=== PATIENT | female | born 1970 | race Caucasian/White ===

== ENCOUNTER 2020-03-26 13:14 | Emergency (ER) | payer OTHER, SELFPAY ==
[2020-03-26 13:25] VITALS: BP 98/50; PULSE 95; RESP 16; TEMP 37.8; O2SAT 97
--- NOTE | 2020-03-26 13:29 | ED.NAVMDI ---
HPI - Nausea/Vomiting/Diarrhea General Chief complaint: Nausea/Vomiting/Diarrhea Stated complaint: Diarrhea Time Seen by Provider: 03/26/20 13:35 Source: patient and RN notes reviewed Mode of arrival: ambulatory Limitations: no limitations History of Present Illness HPI Narrative: 50-year-old female presents concern for diarrhea, intermittent fever, chills, body aches, nausea for 6 days. Reports 6-8 diarrhea stools a day. Reports nausea without vomiting. Reports Covid-like illness 1-1/2 months ago, denies any known new exposure, sick contacts. Is concern for foodborne illness, reports before she got sick she ate turkey hotdogs. She denies abdominal pain, bloody stools MD elicited complaint: diarrhea Related Data Allergies Allergy/AdvReac Type Severity Reaction Status Date / Time Penicillins Allergy Unknown Unknown Verified 03/06/20 16:32 ERYTHROMYCINS Allergy Mild Nausea and Uncoded 03/06/20 16:32 Vomiting Review of Systems Review of Systems: Narrative: CONSTITUTIONAL: Reports malaise, chills, fever. CARDIOVASCULAR: Denies chest pain, palpitations, or edema. RESPIRATORY: Denies cough or dyspnea. GASTROINTESTINAL: Denies abdominal pain, vomiting, bloody, or mucous stools. Reports diarrhea, nausea GENITOURINARY: Denies dysuria or hematuria. MUSCULOSKELETAL: Denies myalgia. NEUROLOGIC: Denies headache. All systems reviewed & are unremarkable except as noted in HPI and below PMFSH Past Medical History Medical History (Updated 03/26/20 @ 13:42 by Elaina Wynn NP) HTN (hypertension) IFG (impaired fasting glucose) Mixed hyperlipidemia CHERYL (obstructive sleep apnea) Polycystic kidney disease Surgical History Surgical History (Updated 03/06/20 @ 16:48 by Juice Barraza MD) H/O: hysterectomy Hx of cerebral aneurysm repair Family History Family History (Updated 11/03/15 @ 23:19 by DOCTOR UNKNOWN) Mother Family history of arthritis Hypertension Family history of polycystic kidney disease Father Family history of diabetes mellitus in first degree relative Social History Social History (Updated 03/06/20 @ 16:33 by Madalyn Brito) Smoking status: Never smoker Second hand tobacco smoke exposure: No Alcohol intake: never Substance use: never Substance use type: does not use Gender identity (if verbalized by the patient): Female Comments At time of signature, agree with nursing past medical, surgical, social and family history. There is no relevant family history pertinent to the presenting complaint Exam Narrative: Exam Narrative: GENERAL: Well-appearing, well-nourished, and in no acute distress. HEAD: Normocephalic, atraumatic. EYES: PERRLA, conjunctivae clear ENT: Nares clear. Mucous membranes moist. NECK: Supple. CHEST: Speaks in full sentences. No respiratory distress. HEART: Regular rate and rhythm. ABDOMEN: Obese.Bowel sounds present in all four quadrants. SKIN: Warm, dry, no rash. NEURO: Alert and oriented x3. PSYCH: Normal mood and affect Course Course Emergency Course: Patient is aware of diagnosis, understands and agrees to treatment plan. Anticipatory guidance given. Patient agrees to follow-up as directed and is aware of reasons to seek care at the emergency department. Portions of this record may have been created with voice recognition software Vital Signs Vital signs: Vital Signs Temperature 100.0 F H 03/26/20 13:25 Pulse Rate 95 03/26/20 13:25 Respiratory Rate 16 03/26/20 13:25 Blood Pressure 98/50 L 03/26/20 13:25 Pulse Oximetry 97 03/26/20 13:25 Temperature 100.0 F H 03/26/20 13:25 Pulse Rate 95 03/26/20 13:25 Respiratory Rate 16 03/26/20 13:25 Blood Pressure 98/50 L 03/26/20 13:25 Pulse Oximetry 97 03/26/20 13:25 Reviewed. MDM - Nausea/Vomiting/Diarrhea MDM Narrative Medical decision making narrative: Exam findings show no acute concerns or changes; patient is non-toxic appearing and is in no distress.
== END 2020-03-26 13:52 | disposition home or self-care (01) ==
PROVIDERS: Emergency Provider Nurse Practitioner; PCP Family Medicine
DX: R19.7 Diarrhea, unspecified (principal); I10 Essential (primary) hypertension; E78.2 Mixed hyperlipidemia; G47.33 Obstructive sleep apnea (adult) (pediatric); Q61.3 Polycystic kidney, unspecified
CPT/HCPCS: 99213; G0463

== ENCOUNTER 2020-05-10 14:30 | Outpatient (RCR) | payer OTHER, SELFPAY ==
[2020-04-27 12:34] VITALS: BMI 32.7
[2020-04-27 12:36] VITALS: BMI 32.7
== END 2020-07-26 13:23 | disposition home or self-care (01) ==
LOC: ANHDMC 14:30
PROVIDERS: PCP Family Medicine; Visit Provider Family Medicine
DX: E11.9 Type 2 diabetes mellitus without complications (principal); Z71.3 Dietary counseling and surveillance; Z71.89 Other specified counseling
CPT/HCPCS: 97802; G0108; G0109

== ENCOUNTER 2020-07-26 10:16 | Outpatient (CLI) | payer OTHER, SELFPAY ==
--- NOTE | ~2020-07-26 | CT_ITS ---
EXAMINATION: CT abdomen pelvis wo con DATE: 07/26/2020 10:41 INDICATION: Left lower quadrant abdominal pain. TECHNIQUE: Computed tomography (CT) of the abdomen and pelvis was performed without intravenous contr ast. Automated exposure control and iterative reconstruction technique were employed. The dose-length product was 672.66 mGy-cm. COMPARISON: CT abdomen and pelvis 12/16/2012 FINDINGS: The visualized portions of the lung bases demonstrate mild atelectasis. No pleural effusion . The heart size is normal. No pericardial effusion. There are cysts in the liver measuring up to 11 mm. The spleen is normal. There are innumerable cysts and a few hemorrhagic cysts in the kidneys colton uring up to 6.0 cm on the left. There are calcifications in both kidneys, many of which are parenchym al. Calcifications that may be nonobstructing kidney stones measure up to 4 mm on the left. There is fat stranding adjacent to the left kidney and tail of the pancreas. There is an 18 mm mass in right a drenal gland measuring soft tissue attenuation that measured 13 mm on 12/16/2012, likely an adenoma. L eft adrenal gland is normal. There are no dilated loops of bowel. The appendix is normal. There are n o pathologically enlarged lymph nodes. There is no free intraperitoneal fluid. There is mild thoracol umbar spondylosis. IMPRESSION: 1. Fast stranding adjacent to the left kidney and tail of the pancreas. The differential diagnosis in cludes ruptured renal cyst and acute interstitial pancreatitis. Correlate with lipase. 2. Polycystic kidney disease. Reviewed, dictated and finalized at location B. IMPRESSION: 1. Fast stranding adjacent to the left kidney and tail of the pancreas. The dif ferential diagnosis includes ruptured renal cyst and acute interstitial pancrea titis. Correlate with lipase. 2. Polycystic kidney disease.
[2020-07-26 11:51] LABS: Amylase 66 U/L (30-110); Lipase 147 U/L (23-300)
== END 2020-07-26 10:17 | disposition home or self-care (01) ==
PROVIDERS: PCP Family Medicine; Visit Provider Family Medicine
DX: R10.32 Left lower quadrant pain (principal); Q61.3 Polycystic kidney, unspecified
CPT/HCPCS: 36415; 74176; 82150; 83690

== ENCOUNTER → 2021-01-11 09:21 | Outpatient (CLI) | payer OTHER, SELFPAY ==
--- NOTE | ~2021-01-11 | XR_ITS ---
XR shoulder LT min 2V DATE: 01/11/2021 09:38 INDICATION: Left shoulder pain TECHNIQUE: 4 views COMPARISON: None FINDINGS: No fracture or dislocation, periosteal reaction or bone destruction or abnormal soft tissue calcification. Normal alignment at the acromioclavicular and glenohumeral joints. IMPRESSION: Negative Reviewed, dictated and finalized at location A. IMPRESSION: Negative
--- NOTE | ~2021-01-11 | XR_ITS ---
XR cervical spine min 6V DATE: 01/11/2021 09:38 INDICATION: Left shoulder pain TECHNIQUE: AP, open-mouth, lateral, swimmer views. Flexion and extension lateral views. COMPARISON: 04/16/2017 cervical spine FINDINGS: There is straightening of the cervical spine. There is moderate degenerative disc disease with anterior and posterior spurring at C5-6. There is mi ld degenerative disc disease at C4-5 and C6-7. There is mild uncovertebral joint spurring at C5-6, primarily on the right. C1 and C2 are normally aligned and the odontoid process is intact. No fracture or dislocation or lock ed facet or prevertebral soft tissue swelling is detected. There is no instability on flexion or extension. IMPRESSION: Multilevel degenerative disc disease Straightening Reviewed, dictated and finalized at location A.
== END ==
PROVIDERS: PCP Family Medicine; Visit Provider Physician Assistant
DX: M25.512 Pain in left shoulder (principal); R20.2 Paresthesia of skin; M50.30 Other cervical disc degeneration, unspecified cervical region
CPT/HCPCS: 72052; 73030

== ENCOUNTER → 2022-04-29 16:51 | Outpatient (CLI) | payer OTHER, SELFPAY ==
--- NOTE | ~2022-04-29 | MM_ITS ---
EXAMINATION: MM screening don BI w derrick HISTORY: Screening mammogram TECHNIQUE: Craniocaudal and mediolateral oblique 3-D tomosynthesis images were obtained and synthetic 2-D images were generated. CAD analysis was submitted and interpreted. COMPARISON: No prior mammogram is available for comparison at this institution. BREAST PARENCHYMAL COMPOSITION: The breasts are almost entirely fatty. FINDINGS: There is no evidence of suspicious mass, calcification, or architectural distortion to sugg est malignancy in either breast. There has been no suspicious interval change. IMPRESSION: 1. No mammographic evidence of malignancy. 2. Recommend routine screening mammography in one year. 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
== END ==
PROVIDERS: PCP Family Medicine; Visit Provider Obstetrics & Gynecology
DX: Z12.31 Encounter for screening mammogram for malignant neoplasm of breast (principal)
CPT/HCPCS: 77063; 77067

== ENCOUNTER 2023-10-14 13:32 | Observation (INO) | payer OTHER, SELFPAY ==
[2023-10-14] VITALS (10 sets, daily range): BP systolic 102–168; BP diastolic 63–84; PULSE 53–80; RESP 14–20; TEMP 36.4–36.7; O2SAT 92–100; BMI 29.5
--- NOTE | ~2023-10-14 | XR_ITS ---
XR chest 2V Ordering provider: Freeman Freeman MD History: 53 years Female with . chest pain WITH NAUSEA, VOMITTING AND DIZZINESS . Comparison: April 22, 2016 FINDINGS: MEDIASTINUM: The cardiac silhouette is not enlarged. LUNGS: No infiltrates, effusions or pneumothorax. OTHER: No free air under the diaphragm. IMPRESSION: No acute cardiopulmonary pathology. Reviewed, dictated and finalized at location A.
--- NOTE | ~2023-10-14 | NM_ITS ---
EXAMINATION: NM dee stress w perfusion DATE: 10/15/2023 14:23 INDICATION: Chest pain TECHNIQUE: Rest images were obtained following intravenous administration of 10.5 mCi Tc99m tetrofosm in (Myoview). The patient was infused intravenously with Lexiscan (Regadenoson). Then, 33.5 mCi Tc99m tetrofosmin (Myoview) was administered intravenously, and stress images were obtained. Data was gabriel nstructed into short axis and horizontal and vertical long axis SPECT images. Gated SPECT images were also obtained. COMPARISON: None. FINDINGS: There is no definite reversible or fixed perfusion abnormality to suggest ischemia or infar ction. There is normal left ventricular chamber size, wall motion and ejection fraction. Left ventr icular ejection fraction measures >70%. IMPRESSION: 1. Normal myocardial perfusion at rest and during stress. 2. Left ventricular ejection fraction measuring >70%. Reviewed, dictated and finalized at location A.
--- NOTE | 2023-10-14 13:33 | ECG_ITS ---
Test Date: 2023-10-14 14:05:14 Measurements Intervals [place] Rate: 66 P: 56 OR: 170 QRS: -12 QRSD: 85 T: 30 QT: 399 QTc: 420 Interpretive Statements SINUS RHYTHM LOW QRS VOLTAGE IN PRECORDIAL LEADS BASELINE ARTIFACT- I, II, AVR, AVL, AVF BORDERLINE ECG No previous ECG available for comparison Electronically Signed On 10-14-2023 14:31:25 CDT by Shakir Arias D.O.
[2023-10-14 14:21] LABS: Basophils Absolute Auto 0.1 K/mm3 (0.0-0.1); Basophils Percent Auto 0.5 % (0.2-1.2); Eosinophils Absolute Auto 0.1 K/mm3 (0-0.3); Hematocrit 41.6 % (37.0-47.0); Hemoglobin 13.5 g/dL (12.0-15.0); Immature Granulocyte Absolute 0.02 K/mm3 (0.00-0.031); Immature Granulocyte Percent A 0.2 % (0-0.5); Lymphocytes Absolute Auto 2.22 K/mm3 (0.9-3.2); Mean Corpuscular HGB Conc 32.5 g/dl (32-36); Mean Corpuscular Hemoglobin 29.9 pg (26-34); Mean Platelet Volume 9.4 fl (7.4-10.4); Monocytes Absolute Auto 0.7 K/mm3 (0.1-0.6); Monocytes Percent Auto 5.6 % (2.6-8.5); Neutrophils Absolute Auto 8.6 K/mm3 (1.3-6.7); Neutrophils Percent Auto 73.7 % (45.5-73.1); Platelet Count Result 301 k/mm3 (150-375); Red Blood Count 4.52 M/mm3 (4.2-5.4); Red Cell Distribution Width 12.9 % (11.5-14.5); White Blood Count 11.7 K/mm3 (4.5-10.0)
[2023-10-14 14:31] LABS: Alanine Aminotransferase 12 U/L (6-35); Albumin Level 4.1 g/dL (3.5-5.1); Alkaline Phosphatase 75 U/L (38-126); Anion Gap 9 mmol/L (4-12); Aspartate Amino Transferase 19 U/L (14-36); Bilirubin,Total 0.3 mg/dL (0.2-1.3); Blood Urea Nitrogen 31 mg/dL (7-17); Calcium 9.4 mg/dL (8.4-10.2); Carbon Dioxide 24 mmol/L (22-30); Chloride 105 mmol/L (98-107); Estimated CRCL calculation 40 ml/min; Estimated Glomerular Filt Rate 32; Glucose 91 mg/dL (65-110); Lipase 268 U/L (23-300); Potassium 4.3 mmol/L (3.4-5.0); Sodium 138 mmol/L (137-145)
[2023-10-14 14:32] LABS: Prothrombin Time 13.1 Seconds (11.1-14.7)
[2023-10-14 14:33] LABS: Partial Thromboplastin Time 26.4 Seconds (22.3-36.8)
[2023-10-14 14:43] LABS: Troponin I < 0.012 ng/mL (0.000-0.034)
--- NOTE | 2023-10-14 16:22 | ECG_ITS ---
Test Date: 2023-10-14 16:44:04 Measurements Intervals [place] Rate: 56 P: 45 GA: 176 QRS: -18 QRSD: 98 T: 19 QT: 429 QTc: 415 Interpretive Statements SINUS BRADYCARDIA LOW QRS VOLTAGE IN PRECORDIAL LEADS DELAYED PRECORDIAL R/S TRANSITION BORDERLINE ECG Compared to ECG 10/14/2023 14:05:14 HEART RATE HAS DECREASED Electronically Signed On 10-14-2023 18:30:42 CDT by Shakir Arias D.O.
[2023-10-14 17:18] LABS: Troponin I < 0.012 ng/mL (0.000-0.034)
--- NOTE | 2023-10-14 19:09 | ED.CHESTPAIN ---
HPI - Chest Pain General Chief Complaint: Chest Pain Stated Complaint: dizzy, cp Time Seen by Provider: 10/14/23 16:07 History of Present Illness HPI narrative: This is a 53-year-old female, with history of polycystic kidney disease with history cerebral aneurysm status post coiling, presents emergency department complaining of chest pain. The patient states she was at the gym (she does states we) when she felt left-sided chest pressure with radiation towards left arm associated with lightheadedness nausea. She states the pain has continued despite resting. She denies shortness of breath, loss of consciousness or weakness/numbness. She has no other complaints at this time. Related Data Home Medications Medication Instructions Recorded Confirmed estradiol 1.25 gram/actuation 1.25 g transdermal DAILY 02/14/22 08/18/23 (0.06%) transdermal gel pump (EstroGel) oxybutynin chloride 10 mg 10 mg PO DAILY 08/18/23 08/18/23 tablet,extended release 24 hr Allergies Allergy/AdvReac Type Severity Reaction Status Date / Time Penicillins Allergy Unknown Unknown Verified 08/18/23 07:31 ERYTHROMYCINS Allergy Mild Nausea and Uncoded 08/18/23 07:31 Vomiting Review of Systems Review of Systems: All systems reviewed & are unremarkable except as noted in HPI and below PMFSH Past Medical History Medical History Aneurysm, carotid artery, internal Controlled diabetes mellitus HTN (hypertension) IFG (impaired fasting glucose) Mixed hyperlipidemia CHERYL (obstructive sleep apnea) Polycystic kidney disease Surgical History Surgical History H/O: hysterectomy Hx of cerebral aneurysm repair Family History Family History (Updated 10/14/23 @ 19:12 by Freeman Freeman MD) Mother Family history of arthritis Hypertension Family history of polycystic kidney disease Heart disease, Onset Age: 38 Father Family history of diabetes mellitus in first degree relative Social History Social History Social History: Smoking status: Never smoker Second hand tobacco smoke exposure: No Alcohol intake: never Substance use: never Substance use type: does not use Living arrangements: with family Occupation/Education: occupation Gender identity (if verbalized by the patient): Female Sexual Orientation (if Verbalized by the Patient): Straight or Heterosexual Spiritual care concerns: No Exam Narrative: GENERAL: Well-developed, well-nourished, and in no acute distress. HEAD: Normocephalic, atraumatic. EYES: PERRLA and EOMI. CHEST: Clear to auscultation. No respiratory distress. No wheezes rales or rhonchi. Mild tenderness to palpation over the chest wall HEART: Regular rate and rhythm. No murmur heard. Normal peripheral pulses. ABDOMEN: Soft, nontender, nondistended, normal active bowel sounds. EXTREMITIES: Normal range of motion. No edema. SKIN: Warm, dry, no rash. NEURO: Alert and oriented x3. No focal deficit. Moving all 4 limbs spontaneously PSYCH: Normal mood and affect. Course Course Emergency Course: 16:55 - EKG not concerning for ischemia. Troponin negative. Chemistries remarkable for creatinine of 1.7. CBC demonstrates acute cardiopulmonary process. Heart score 4. Mildly elevated white blood cell count of 11.7. Chest x-ray not concerning for acute cardiopulmonary process. I discussed the patient with hospitalist, Dr. Siddiqui who accepts admission. I discussed the patient with medicaid plan compliance director, Dr. Hernandez agrees to consult and requests the patient be made NPO at midnight. Vital Signs Vital signs: Vital Signs Temperature 97.9 F 10/14/23 13:49 Pulse Rate 80 10/14/23 13:49 Respiratory Rate 16 10/14/23 13:49 Blood Pressure 102/65 10/14/23 13:49 Pulse Oximetry 100 10/14/23 13:49 Oxygen Delivery Room Air 0
[2023-10-14 20:17] LABS: Troponin I < 0.012 ng/mL (0.000-0.034)
--- NOTE | 2023-10-14 21:11 | ADMGEN ---
This patient, Pam Rushing, was admitted to IMU Room 200-01. Patient/family oriented to hospital policies and general routines including ID bracelet, bed and alarms, visiting hours, pain management, procedures, bathroom and other care routines, personal items, smoking policy, room service/diet, and visiting hours. Information on how to activate the Rapid Response Team has been discussed. Patient/Family are encouraged to report perceived risks to care and to ask questions if they do not understand what they are told or what they should do.
--- NOTE | 2023-10-14 22:27 | PM.IMHP ---
H&P: HPI History of Present Illness Date/Time: 10/14/23 22:27 Chief Complaint: Chest pain Narrative: 53 year female with history of polycystic ovarian disease, history of cerebral aneurysm status post coiling, complete hospital complaining of chest pain. Patient states she was at the gym daily value after her workouts came home started feeling dizzy and also had some chest pressure and feeling and lightheaded the symptoms made her worried she came to the emergency room for further workup and evaluation in the emergency room she has no shortness of breath no chest pain no numbness no weakness or urgency because of urination no. Appears very comfortable on bedside patient is compliant with her home medications patient has been on Ozempic for borderline diabetes and weight loss otherwise just on lisinopril 5 mg daily. No history of any heart problem in the past Review of Systems Review of Systems: All systems reviewed & are unremarkable except as noted in HPI and below PMFSH Past Medical History Medical History Aneurysm, carotid artery, internal Controlled diabetes mellitus HTN (hypertension) IFG (impaired fasting glucose) Mixed hyperlipidemia CHERYL (obstructive sleep apnea) Polycystic kidney disease Surgical History Surgical History H/O: hysterectomy Hx of cerebral aneurysm repair Family History Family History (Updated 10/14/23 @ 21:19 by Stuart Walton RN) Mother Family history of polycystic kidney disease Family history of arthritis Heart disease, Onset Age: 38 Hypertension Depression Brain hemorrhage due to vascular malformation Kidney transplant recipient Father Family history of diabetes mellitus in first degree relative Cerebrovascular accident Carotid artery stenosis Social History Social History Social History: Smoking status: Never smoker Second hand tobacco smoke exposure: No Alcohol intake: never Substance use: never Substance use type: does not use Do You Feel Safe in your Home?: Yes Lack of Transportation: No Lack of Food: Never True Current Housing: I Have Housing Concerned About Future Housing: No Difficulty Paying Gas/Electric Bills: No Difficulty Paying for Meds: No Currently Unemployed: No Education: High School Diploma/GED Difficulty w/ Childcare or Family Care: No Living arrangements: with family Occupation/Education: occupation Gender identity (if verbalized by the patient): Female Sexual Orientation (if Verbalized by the Patient): Straight or Heterosexual Spiritual care concerns: No Meds Home Medications and Allergies Home Medications Medication Instructions Recorded Confirmed Type lancets #100 ea 05/05/20 10/14/23 Rx blood sugar diagnostic (Blood #100 ea 12/18/21 10/14/23 Rx Glucose Test strips) cyclobenzaprine 10 mg tablet 10 mg PO TID PRN muscle spasm #30 02/14/23 10/14/23 Rx tabs lisinopril 5 mg tablet See Rx Instructions .Route 07/20/23 10/14/23 Rx .COMPLEX #90 tabs oxybutynin chloride 10 mg 10 mg PO DAILY 08/18/23 10/14/23 History tablet,extended release 24 hr semaglutide 0.25 mg or 0.5 mg (2 0.5 mg (0.736 mL) subcut WEEKLY #3 09/25/23 10/14/23 Rx mg/3 mL) subcutaneous pen injector mL ([employer] cetirizine 10 mg tablet (Zyrtec) 10 mg PO DAILY 10/14/23 10/14/23 History estradiol 1 mg tablet 1 mg PO DAILY 10/14/23 10/14/23 History Allergies Allergy/AdvReac Type Severity Reaction Status Date / Time Penicillins Allergy Unknown Unknown Verified 08/18/23 07:31 ERYTHROMYCINS Allergy Mild Nausea and Uncoded 08/18/23 07:31 Vomiting Vital Signs Vital Signs - 24 hr 10/14/23 13:49 10/14/23 16:30 10/14/23 16:00 Temperature 36.6 C 36.4 C Pulse Rate 80 62 Respiratory Rate 16 16 Blood Pressure 102/65 103/67
[2023-10-14 22:58] LABS: Hematocrit 39.2 % (37.0-47.0); Hemoglobin 12.9 g/dL (12.0-15.0); Mean Corpuscular HGB Conc 32.9 g/dl (32-36); Mean Corpuscular Hemoglobin 30.4 pg (26-34); Mean Corpuscular Volume 92.2 fl (80-100); Mean Platelet Volume 9.6 fl (7.4-10.4); Platelet Count Result 273 k/mm3 (150-375); Red Blood Count 4.25 M/mm3 (4.2-5.4); Red Cell Distribution Width 12.8 % (11.5-14.5); White Blood Count 10.9 K/mm3 (4.5-10.0)
[2023-10-14 23:24] LABS: Troponin I < 0.012 ng/mL (0.000-0.034)
[2023-10-14 23:33] LABS: Alanine Aminotransferase 10 U/L (6-35); Albumin Level 3.4 g/dL (3.5-5.1); Alkaline Phosphatase 65 U/L (38-126); Anion Gap 9 mmol/L (4-12); Aspartate Amino Transferase 17 U/L (14-36); Bilirubin,Total 0.3 mg/dL (0.2-1.3); Blood Urea Nitrogen 29 mg/dL (7-17); Carbon Dioxide 23 mmol/L (22-30); Chloride 108 mmol/L (98-107); Estimated CRCL calculation 42 ml/min; Estimated Glomerular Filt Rate 34; Glucose 98 mg/dL (65-110); Potassium 3.5 mmol/L (3.4-5.0); Sodium 140 mmol/L (137-145)
[2023-10-14 23:36] LABS: Cholesterol 148 mg/dL (0-200); HDL Direct 31 mg/dL; Triglycerides 194 mg/dL (<150)
[2023-10-14 23:47] LABS: LDL Cholesterol Direct 97 mg/dL
[2023-10-15] VITALS (12 sets, daily range): BP systolic 97–108; BP diastolic 58–62; PULSE 55–70; RESP 12–20; TEMP 36.4–36.9; O2SAT 95–97
--- NOTE | 2023-10-15 | ECHO_ITS ---
Patient Info Name: Pam Rushing Age: 53 years : 1970 Gender: Female Ht: 67 in Wt: 188 lbs BSA: 2.03 m2 HR: 61 bpm BP: 108 / 60 mmHg Heart Rhythm: Sinus Rhythm Technical Quality: Good Exam Date: 10/15/2023 7:25 AM Exam Location: Echo Lab Patient Status: Inpatient Admit Date: 10/14/2023 Staff Ordering Physician: Jeromy Lawton MD Assistant Casino Shift Manager: Demarcus Melgar RDCS Attending Provider: Manjinder Siddiqui MD Exam Type: CA echo doppler color flow Study Info Indications - CHF Complete two-dimensional, color flow and Doppler transthoracic echocardiogram is performed. Summary 1. Complete two-dimensional, color flow and Doppler transthoracic echocardiogram is performed. 2. Left ventricular chamber dimension is normal. 3. Left ventricular systolic function is normal, estimated at 60-65%. 4. There is no increased left ventricular wall thickness. 5. The left ventricular diastolic function is normal. 6. There is mild mitral valve regurgitation. 7. There is mild tricuspid valve regurgitation. 8. There is mild pulmonic regurgitation. 9. There is small pericardial effusion. Left Ventricle Left ventricular chamber dimension is normal. Left ventricular systolic function is normal, estimated at 60-65%. There is no increased left ventricular wall thickness. The left ventricular diastolic function is normal. Right Ventricle Right ventricular chamber dimension is normal. Right ventricular systolic function is normal. Left Atria Left atrial chamber dimension is normal. Right Atria Right atrial chamber dimension is normal. Atrial Septum Intact interatrial septum visualized by color flow imaging. Aortic Valve The aortic valve is trileaflet. There is mild aortic valve sclerosis. There is no aortic valve stenosis. There is trace aortic valve regurgitation. Pulmonic Valve The pulmonic valve is normal. There is no pulmonic valve stenosis. There is mild pulmonic regurgitation. Mitral Valve The mitral valve has normal leaflets. There is no mitral valve stenosis. There is mild mitral valve regurgitation. Tricuspid Valve The tricuspid valve leaflets are normal. There is no significant tricuspid valve stenosis. There is mild tricuspid valve regurgitation. No pulmonary hypertension, estimated pulmonary arterial systolic pressure is 26 mmHg. Pericardium/Pleural The pericardium appears normal. There is small pericardial effusion. Inferior Vena Cava Normal inferior vena cava with >50% collapse upon inspiration consistent with normal right atrial pressure, 5 mmHg. Aorta The aortic root size at the sinus of Valsalva is normal. Left Ventricular Outflow Tract Name Value Normal LVOT 2D LVOT Diameter 2.1 cm LVOT Doppler LVOT Peak Gradient 5 mmHg LVOT Mean Gradient 2 mmHg LVOT VTI 23 cm LVOT VTI/AV VTI Ratio 0.9 LVOT Stroke Volume 80 ml LVOT CO 5.0 l/min LVOT CI 2.5 l/min/m2 Pulmonic Valve Name
--- NOTE | 2023-10-15 | EST_ITS ---
Patient Info Name: Pam Rushing Age: 53 years : 1970 Gender: Female Ht: 67 in Wt: 188 lbs BSA: 2.03 m2 Technical Quality: Excellent Exam Date: 10/15/2023 1:20 PM Exam Location: Echo Lab Patient Status: Inpatient Admit Date: 10/14/2023 Staff Ordering Physician: Jeromy Lawton MD Attending Provider: Manjinder Siddiqui MD Exercise Technologist: Brandi Subramanian RDCS Exercise Physician: Marcus Baker MD Exam Type: CA stress dee w NM Study Info Indications R07.9 - Chest pain, unspecified A regadenoson stress test was performed. Summary 1. Please correlate with nuclear medicine images, reported separately. 2. No abnormal ST-T wave changes with lexiscan. 3. Stress test was supervised and interpreted by Dr Marcus Baker. Protocol: Lexiscan Stress ECG Details Stage: REST Duration (min): 1 min : 15 sec HR (bpm): 57 SBP (mmHg): 112 DBP (mmHg): 71 Stage: REST Duration (min): 12 min : 4 sec HR (bpm): 59 SBP (mmHg): 112 DBP (mmHg): 71 Stage: STAGE 1 Duration (min): 1 min : 0 sec HR (bpm): 93 SBP (mmHg): 100 DBP (mmHg): 57 Stage: RECOVERY Duration (min): 1 min : 0 sec HR (bpm): 95 SBP (mmHg): 109 DBP (mmHg): 60 Stage: RECOVERY Duration (min): 2 min : 0 sec HR (bpm): 89 SBP (mmHg): 109 DBP (mmHg): 60 Stage: RECOVERY Duration (min): 3 min : 0 sec HR (bpm): 86 SBP (mmHg): 95 DBP (mmHg): 60 Stage: RECOVERY Duration (min): 3 min : 24 sec HR (bpm): 83 SBP (mmHg): 95 DBP (mmHg): 60 Rest HR: 59 bpm Peak HR: 97 bpm Rest Sys BP: 112 mmHg Peak Sys BP: 109 mmHg Max Pred HR: 169 bpm % Max Pred HR: 57 % Target HR: 144 bpm Max RPP: 10,573 bpm*mmHg BP Response: Normal blood pressure response Termination Reason: Completed protocol Cardiac Symptoms: None Total Time: 1 min : 0 sec Rest Morse BP: 71 mmHg Peak Morse BP: 60 mmHg Total Dose: 0.4 mg Resting ECG Sinus bradycardia. Poor R wave progression. Stress ECG No abnormal ST/T wave changes with exercise. Arrhythmias None. Report Signatures
[2023-10-15 03:56] LABS: Basophils Absolute Auto 0.1 K/mm3 (0.0-0.1); Basophils Percent Auto 0.6 % (0.2-1.2); Eosinophils Absolute Auto 0.2 K/mm3 (0-0.3); Eosinophils Percent Auto 1.9 % (0-4.4); Hematocrit 39.3 % (37.0-47.0); Hemoglobin 12.7 g/dL (12.0-15.0); Immature Granulocyte Absolute 0.04 K/mm3 (0.00-0.031); Immature Granulocyte Percent A 0.4 % (0-0.5); Lymphocytes Absolute Auto 2.79 K/mm3 (0.9-3.2); Mean Corpuscular HGB Conc 32.3 g/dl (32-36); Mean Corpuscular Hemoglobin 29.8 pg (26-34); Mean Corpuscular Volume 92.3 fl (80-100); Mean Platelet Volume 9.4 fl (7.4-10.4); Monocytes Absolute Auto 0.8 K/mm3 (0.1-0.6); Monocytes Percent Auto 7.1 % (2.6-8.5); Neutrophils Absolute Auto 6.9 K/mm3 (1.3-6.7); Platelet Count Result 275 k/mm3 (150-375); Red Blood Count 4.26 M/mm3 (4.2-5.4); White Blood Count 10.7 K/mm3 (4.5-10.0)
[2023-10-15 04:28] LABS: Anion Gap 11 mmol/L (4-12); Blood Urea Nitrogen 28 mg/dL (7-17); Calcium 8.3 mg/dL (8.4-10.2); Carbon Dioxide 20 mmol/L (22-30); Chloride 108 mmol/L (98-107); Estimated CRCL calculation 45 ml/min; Estimated Glomerular Filt Rate 37; Glucose 111 mg/dL (65-110); Potassium 3.7 mmol/L (3.4-5.0); Sodium 139 mmol/L (137-145)
[2023-10-15] MEDS: ENOXAPARIN 40 MG/0.4 ML SYRINGE SUB-Q (09:27)
--- NOTE | 2023-10-15 10:17 | PM.CNCAR ---
Assessment and Plan Assessment and plan (1) Chest pain: Qualifiers: Chest pain type: unspecified Qualified Code(s): R07.9 - Chest pain, unspecified Code(s): R07.9 - Chest pain, unspecified Status: Acute Assessment and Plan: Atypical. Probably musculoskeletal but cannot exclude angina especially given her multitude of risk factors for coronary disease. Troponins are negative and EKG is unremarkable. Will proceed to order Lexiscan myocardial perfusion study for ischemic evaluation. 2D echocardiogram was already ordered and will be reviewed. Will prescribe Tylenol 1000 mg p.o. x1. If stress test and echo are unremarkable, patient will be okay for discharge (2) Controlled diabetes mellitus: Code(s): E11.9 - Type 2 diabetes mellitus without complications Status: Acute Assessment and Plan: Per Dr. Barraza (3) Polycystic kidney disease: Code(s): Q61.3 - Polycystic kidney, unspecified Status: Acute Assessment and Plan: Per Dr. Yates (4) HTN (hypertension): Code(s): I10 - Essential (primary) hypertension Status: Acute Assessment and Plan: Continue lisinopril 5 mg daily but will discontinue hydralazine. If further BP meds are needed, beta-sofía would be recommended (5) CHERYL (obstructive sleep apnea): Code(s): G47.33 - Obstructive sleep apnea (adult) (pediatric) Status: Acute (6) Mixed hyperlipidemia: Code(s): E78.2 - Mixed hyperlipidemia Status: Acute Assessment and Plan: Because of her history of diabetes, brain aneurysm and multitude of risk factors, I do think is reasonable to start her on a statin. I talked to her about risks of statins. She is understanding and will initiate atorvastatin 20 mg daily History of Present Illness History of Present Illness Consult date/time: 10/15/23 10:17 Requesting physician: Dequan Terrell MD Reason For Visit: CHEST PAIN Narrative: Date of service 07/16/2023 Requesting provider: Dr. Terrell Reason consultation: Chest pain History: Patient is a 53-year-old female who does not have known cardiac history herself but does have several risk factors coronary disease including hypertension, hyperlipidemia, family history of heart disease, history of obesity and borderline diabetes. She also spot cystic kidney disease and history of brain aneurysm that did undergo coiling in the past. She was working out at the gym yesterday and became dizzy. She typically works at for 5 days weekly. She has been a bit more tired recently but otherwise had not been feeling out of her ordinary. She went to the gym and when getting up off the floor became dizzy. She sat back down and symptoms passed over a period of a few minutes. She got back up and went to drive back to work. Upon getting out of her car she had another episode of dizziness with associated nausea. About an hour later she started developing chest tightness. Chest tightness was constantly there but did have episodes that were waxing and waning. No specific reason for symptoms to be worse or better. She did feel bit clammy. Pain radiated into her back somewhat. She was doing some pushups which she typically does not do during her exercise routine. She otherwise denies any recent exertional chest pain, shortness of breath, syncope, presyncope, paroxysmal nocturnal dyspnea, orthopnea, edema or palpitations. She continues to even have a little bit tightness this morning. Troponins have been negative and EKGs are unremarkable. Review of Systems Review of Systems: All systems reviewed & are unremarkable except as noted in HPI and below Constitutional: Constitutional: Denies body ache(s) Eyes: Eyes: Denies blurry vision ENT: Reports Normal hearing present Cardiovascular: Cardiovascular: Reports chest pain Respiratory: Respiratory: Denies cough Gastrointestinal: Gastrointestinal: Denies abdominal pain Genitourina
[2023-10-15] MEDS: ACETAMINOPHEN 500 MG TABLET 1000 MG PO (11:33)
[2023-10-15] MEDS: ACETAMINOPHEN 325 MG TABLET 650 MG PO (15:03)
--- NOTE | 2023-10-15 15:37 | PM.IMHP ---
H&P: HPI History of Present Illness Date/Time: 10/15/23 15:37 [facility] Past Medical History Medical History Aneurysm, carotid artery, internal Controlled diabetes mellitus HTN (hypertension) IFG (impaired fasting glucose) Mixed hyperlipidemia CHERYL (obstructive sleep apnea) Polycystic kidney disease Surgical History Surgical History H/O: hysterectomy Hx of cerebral aneurysm repair Family History Family History Mother Family history of polycystic kidney disease Family history of arthritis Heart disease, Onset Age: 38 Hypertension Depression Brain hemorrhage due to vascular malformation Kidney transplant recipient Father Family history of diabetes mellitus in first degree relative Cerebrovascular accident Carotid artery stenosis Social History Social History Social History: Smoking status: Never smoker Second hand tobacco smoke exposure: No Alcohol intake: never Substance use: never Substance use type: does not use Do You Feel Safe in your Home?: Yes Lack of Transportation: No Lack of Food: Never True Current Housing: I Have Housing Concerned About Future Housing: No Difficulty Paying Gas/Electric Bills: No Difficulty Paying for Meds: No Currently Unemployed: No Education: High School Diploma/GED Difficulty w/ Childcare or Family Care: No Living arrangements: with family Occupation/Education: occupation Gender identity (if verbalized by the patient): Female Sexual Orientation (if Verbalized by the Patient): Straight or Heterosexual Spiritual care concerns: No Meds Home Medications and Allergies Home Medications Medication Instructions Recorded Confirmed Type lancets #100 ea 05/05/20 10/14/23 Rx blood sugar diagnostic (Blood #100 ea 12/18/21 10/14/23 Rx Glucose Test strips) cyclobenzaprine 10 mg tablet 10 mg PO TID PRN muscle spasm #30 02/14/23 10/14/23 Rx tabs lisinopril 5 mg tablet See Rx Instructions .Route 07/20/23 10/14/23 Rx .COMPLEX #90 tabs oxybutynin chloride 10 mg 10 mg PO DAILY 08/18/23 10/14/23 History tablet,extended release 24 hr semaglutide 0.25 mg or 0.5 mg (2 0.5 mg (0.736 mL) subcut WEEKLY #3 09/25/23 10/14/23 Rx mg/3 mL) subcutaneous pen injector mL (Ozempic) cetirizine 10 mg tablet (Zyrtec) 10 mg PO DAILY 10/14/23 10/14/23 History estradiol 1 mg tablet 1 mg PO DAILY 10/14/23 10/14/23 History Allergies Allergy/AdvReac Type Severity Reaction Status Date / Time Penicillins Allergy Unknown Unknown Verified 08/18/23 07:31 ERYTHROMYCINS Allergy Mild Nausea and Uncoded 08/18/23 07:31 Vomiting Vital Signs Vital Signs - 24 hr 10/14/23 16:30 10/14/23 16:00 10/14/23 17:00 Temperature 36.4 C 36.6 C Pulse Rate 62 63 Respiratory Rate 16 14 Blood Pressure 103/67 106/63 Pulse Oximetry 98 100 Oxygen Delivery Room Air 10/14/23 18:01 10/14/23 19:05 10/14/23 20:33 Temperature 36.4 C 36.5 C Pulse Rate 73 73 68 Respiratory Rate 16 16 Blood Pressure 110/73 104/84 Pulse Oximetry 98 100 Oxygen Delivery 10/14/23 20:33 10/14/23 21:00 10/14/23 21:18 Temperature 36.7 C 36.7 C Pulse Rate 70 65 53 L Respiratory Rate 18 20 18 Blood Pressure 110/70 115/64 168/79 H Pulse Oximetry 96 92 98 Oxygen Delivery 10/14/23 21:05 10/14/23 21:12 10/14/23 22:00 Temperature Pulse Rate 63 73 Respiratory Rate Blood Pressure Pulse Oximetry Oxygen Delivery Room Air 10/15/23 00:01 10/15/23 00:00 10/15/23 00:00 Temperature 36.9 C Pulse Rate 61 60 Respiratory Rate 20 Blood Pressure 105/62 Pulse Oximetry 95 Oxygen Delivery Room Air 10/15/23 04:02 10/15/23 02:00 10/15/23 04:00 Temperature 36.4 C Pulse Rate 70 63 61 Respiratory Rate 20
[2023-10-15 20:39] LABS: Hemoglobin A1C 5.3 % (<5.7)
--- NOTE | 2023-10-29 05:59 | PM.DS ---
DS: Admitting Diagnosis Discharge Date 10/15/23 Admitting Diagnosis Chest pain DS: Discharge Diagnosis Discharge Diagnosis (1) Chest pain: Qualifiers: Chest pain type: unspecified Qualified Code(s): R07.9 - Chest pain, unspecified Code(s): R07.9 - Chest pain, unspecified Status: Acute DS: Summary Hospital Course Hospital Course: 53 y/o female with history of aneurysm, HTN, DM and obesity presented with c/o CP [facility] suspect patient may have MS pain as her cardiac enzymes are normal and there are no acute changes on her EKG, to further evaluate cardiac stress was ordered which was essentially normal, as well her cardiac ECHO. patient is clinically stable and pain has resolved, will discharge patient home today. Time Spent with Patient Time attestation: Total time spent providing and/or coordinating discharge services: Exam Narrative: GENERAL: Well appearing, no acute distress. HEAD: Normocephalic, atraumatic. NECK: Supple. No adenopathy, no masses. RESPIRATORY: respirations nonlabored. , no rales, wheezing. CARDIOVASCULAR: Regular rate and rhythm without murmurs, ABDOMINAL: Soft, nontender, nondistended, no hepatosplenomegaly. Normoactive BS. MUSCULOSKELETAL: no Epigastric and no hypochondrial tenderness SKIN: Warm, dry, NEURO: A&O X3. Moves all extremities Discharge Plan Discharge Attending physician on discharge: Manjinder Siddiqui Consulting providers: Jeromy Lawton; Marcus Baker; Shakir Arias; Mitchell Ríos; Saurav Carrero Discharging Clinician: Manjinder Siddiqui Patient Disposition: Home, Self-Care Activity: as tolerated Diet: heart healthy Discharge Instructions: patient to follow up with her primary care provider as soon as possible. patient is instructed if any symptoms redevelop to go to nearest ER. Patient Instructions: Antibiotic Form, Nitroglycerin (By mouth), Chest Pain (GEN) Stand Alone Forms: General Discharge Information Follow-up/Referrals: Juice Barraza MD [Primary Care Provider] - Discharge Medications: New nitroglycerin [Nitrostat] 0.4 mg Tablet, Sublingual 0.4 mg sublingual Q5MIN PRN (Reason: Chest Pain) Qty: 26 0RF Continued cyclobenzaprine 10 mg tablet 10 mg PO TID PRN (Reason: muscle spasm) Qty: 30 0RF oxybutynin chloride 10 mg tablet extended release 24hr 10 mg PO DAILY cetirizine [Zyrtec] 10 mg Tablet 10 mg PO DAILY estradiol 1 mg tablet 1 mg PO DAILY lisinopril 5 mg tablet See Rx Instructions .ROUTE .COMPLEX Qty: 90 3RF Dose Instruction: TAKE 1 TABLET BY MOUTH EVERY DAY Rx Instructions: TAKE 1 TABLET BY MOUTH EVERY DAY Ozempic 0.25 mg or 0.5 mg (2 mg/3 mL) pen injector 0.5 mg subcut WEEKLY Qty: 3 5RF No Action atorvastatin 20 mg tablet 20 mg PO DAILY Qty: 90 1RF (DME) lancets Misc See Rx Instructions .ROUTE .MEDSUPPLY Qty: 100 2RF Rx Instructions: Use once daily to check blood sugar (DME) Blood Glucose Test Strip See Rx Instructions .ROUTE .MEDSUPPLY Qty: 100 3RF Rx Instructions: Use once daily to check blood sugar Date of admission: 10/14/23 16:55 Primary Care Provider: Juice Barraza Admitting Provider: Manjinder Siddiqui Attending physician on admission: Manjinder Siddiqui Condition: Stable
== END 2023-10-15 16:49 | disposition home or self-care (01) ==
LOC: ANHED 16:29 → ANHIMU 17:36
PROVIDERS: Internal Medicine; Admitting Provider Family Medicine; Emergency Provider Preventive Medicine Aerospace Medicine; PCP Family Medicine; Visit Provider Family Medicine
DX: R07.9 Chest pain, unspecified (principal); I12.9 Hypertensive chronic kidney disease with stage 1 through stage 4 chronic kidney disease, or unspecified chronic kidney disease; E11.22 Type 2 diabetes mellitus with diabetic chronic kidney disease; N18.31 Chronic kidney disease, stage 3a; I08.3 Combined rheumatic disorders of mitral, aortic and tricuspid valves; Q61.3 Polycystic kidney, unspecified; E78.2 Mixed hyperlipidemia; G47.33 Obstructive sleep apnea (adult) (pediatric); Z79.85 Long-term (current) use of injectable non-insulin antidiabetic drugs
CPT/HCPCS: 36415; 71046; 78452; 80048; 80053; 80061; 83036; 83690; 84484; 85025; 85027; 85610; 85730; 93005; 93017; 93306; 96372; 99285; A9270; A9502; G0378; J1650; J2785